=== PATIENT | male | born 1985 | race Two or more races ===

== ENCOUNTER 2017-06-01 21:10 | Emergency (ER) | payer MEDICAID ==
[2017-06-01] MEDS ORDERED: Ondansetron 4 MG/2 ML SDV IVPUSH ONE (22:14)
[2017-06-01] MEDS ORDERED: HYDROmorphone 0.5 MG/0.5 ML Syringe IVPUSH ONE (22:14)
[2017-06-01] MEDS ORDERED: Sodium Chloride 0.9% 1,000 ML IV ONE (22:14)
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
[2017-06-01] MEDS: Sodium Chloride 0.9% 10 ML Syringe FLUSH PRN (22:31)
[2017-06-02] MEDS ORDERED: HYDROmorphone 1 MG/ML Syringe IVPUSH ONE (00:21)
[2017-06-02] MEDS: Sodium Chloride 0.9% 10 ML Syringe FLUSH PRN (00:28)
[2017-06-02] MEDS ORDERED: HYDROmorphone 2 MG Tab PO STA (01:52)
== END 2017-06-02 02:23 | disposition home or self-care (01) ==
LOC: JP.ED 21:10
DX: S32.435A Nondisplaced fracture of anterior column [iliopubic] of left acetabulum, initial encounter for closed fracture (principal); F17.210 Nicotine dependence, cigarettes, uncomplicated; V89.2XXA Person injured in unspecified motor-vehicle accident, traffic, initial encounter; Y92.410 Unspecified street and highway as the place of occurrence of the external cause
CPT/HCPCS: 36415; 70450; 71250; 72125; 73700; 74176; 80053; 85025; 96361; 96374; 96375; 99284; A9270; J1170; J2405; J7040; J7050

== ENCOUNTER 2017-09-01 11:48 | Emergency (ER) | payer MEDICAID ==
--- NOTE | 2017-09-01 13:25 | EDM.PDOC ---
ED HPI GENERAL MEDICAL PROBLEM - General Chief Complaint: General Stated Complaint: RT HIP PAIN Time Seen by Provider: 09/01/17 13:10 Source of Information: Reports: Patient, Old Records, RN History Limitations: Reports: No Limitations - History of Present Illness INITIAL COMMENTS - FREE TEXT/NARRATIVE: 32 yo male presents with several days of R hip pain. He denies any injury or self tx. No hx of the same. Has not been to the clinic for this. Onset: Gradual Duration: Week(s):, Waxing/Waning Location: Reports: Lower Extremity, Right Quality: Reports: Sharp (with movement. No pain at rest.) Severity: Moderate Improves with: Reports: Rest Worsens with: Reports: Movement Context: Reports: Other (Unknown) Associated Symptoms: Reports: No Other Symptoms Treatments [employer]: Reports: Other (see below) (none) - Related Data Allergies Allergy/AdvReac Type Severity Reaction Status Date / Time ragweed pollen Allergy Cannot Verified 09/01/17 12:32 Remember red dye Allergy Hyperactivi Verified 09/01/17 12:32 ty yellow dye Allergy Hyperactivi Verified 09/01/17 12:32 ty *preservatives Allergy Hyperactivi Uncoded 09/01/17 12:32 ty Home Meds: Home Meds Etodolac 400 mg PO TID #20 tab 09/01/17 [Rx] Past Medical History HEENT History: Reports: Impaired Vision Gastrointestinal History: Reports: GERD Musculoskeletal History: Reports: Fracture Neurological History: Reports: Concussion Psychiatric History: Reports: ADHD, Suicide Attempt - Infectious Disease History Infectious Disease History: Reports: Chicken Pox Social & Family History - Tobacco Use Smoking Status *Q: Current Every Day Smoker Years of Tobacco use: 20 Packs/Tins Daily: 1 - Caffeine Use Caffeine Use: Reports: Soda - Alcohol Use Days Per Week of Alcohol Use: 2 Number of Drinks Per Day: 4 Total Drinks Per Week: 8 - Recreational Drug Use Recreational Drug Use: Yes Drug Use in Last 12 Months: Yes Recreational Drug Type: Reports: Marijuana/Hashish Recreational Drug Use Frequency: Monthly ED ROS GENERAL - Review of Systems Review Of Systems: See Below Constitutional: Reports: No Symptoms Musculoskeletal: Reports: Leg Pain (R groin) Skin: Reports: No Symptoms Neurological: Reports: No Symptoms ED EXAM, GENERAL - Physical Exam Exam: See Below Exam Limited By: No Limitations General Appearance: Alert, WD/WN, No Apparent Distress GI/Abdominal: Other (No inguinal hernia noted.) Back Exam: Normal Inspection Extremities: Normal Inspection, Normal Range of Motion, Other (Tender over R hip flexor). No: Pedal Edema, Joint Swelling, Limited Range of Motion, Increased Warmth, Redness Neurological: Alert, Oriented, CN II-XII Intact, Normal Cognition, No Motor/ Sensory Deficits Psychiatric: Normal Affect, Normal Mood Skin Exam: Warm, Dry, Intact, Normal Color, No Rash Lymphatic: No Adenopathy Course - Vital Signs Last Recorded V/S: Last Vital Signs Temp 36.6 C 09/01/17 12:36 Pulse 84 09/01/17 12:36 Resp 20 09/01/17 12:36 BP 153/75 H 09/01/17 12:36 Pulse Ox 95 09/01/17 12:36 Departure - Departure Time of Disposition: 13:25 Disposition: Home, Self-Care 01 Condition: Good Clinical Impression: Hip flexor tendinitis Qualifiers: Laterality: right Qualified Code(s): M76.891 - Other specified enthesopathies of right lower limb, excluding foot - Discharge Information Prescriptions: Etodolac 400 mg PO TID #20 tab Referrals: Otis Salinas Sr, MD [Primary Care Provider] - Forms: ED Department Discharge
== END 2017-09-01 13:28 | disposition home or self-care (01) ==
LOC: JP.ED 11:48
DX: M76.891 Other specified enthesopathies of right lower limb, excluding foot (principal); K21.9 Gastro-esophageal reflux disease without esophagitis; F90.9 Attention-deficit hyperactivity disorder, unspecified type; F17.210 Nicotine dependence, cigarettes, uncomplicated; Z91.09 Other allergy status, other than to drugs and biological substances
CPT/HCPCS: 99283

== ENCOUNTER 2022-12-26 19:17 | Emergency (ER) | payer MEDICAID | END 2022-12-26 21:49 | disposition home or self-care (01) | LOC: JP.ED 19:17 | DX: M54.50 Low back pain, unspecified (principal); Z91.048 Other nonmedicinal substance allergy status | CPT/HCPCS: 99283 ==

== ENCOUNTER 2023-05-26 18:09 | Inpatient (IN) | payer SELFPAY ==
[2023-05-26] MEDS ORDERED: Morphine 4 MG/ML Syringe IVPUSH PRN (19:00)
[2023-05-26] MEDS ORDERED: Aspirin 81 MG Tab.Chew PO ONE (19:00)
[2023-05-26] MEDS ORDERED: Sodium Chloride 0.9% 10 ML Syringe FLUSH PRN (19:00)
[2023-05-26] MEDS ORDERED: Sodium Chloride 0.9% 1,000 ML IV SCH (19:00)
[2023-05-26 19:12] LABS: BASOPHILS ABSOLUTE AUTO 0.08 K/uL (0.00-0.10); BASOPHILS PERCENT AUTO 0.7 % (0.1-1.3); EOSINOPHILS ABSOLUTE AUTO 0.15 K/uL (0.00-0.40); EOSINOPHILS PERCENT AUTO 1.3 % (0.0-5.4); HEMOGLOBIN 16.2 g/dL (12.9-16.9); IMMATURE GRAN ABSOLUTE AUTO 0.06 K/uL (0.00-0.23); IMMATURE GRAN PERCENT AUTO 0.5 % (0.0-0.7); LYMPHOCYTES ABSOLUTE AUTO 2.71 K/uL (0.8-3.3); LYMPHOCYTES PERCENT AUTO 24.2 % (11.4-47.7); MEAN CORPUSCULAR HGB CONC 34.5 g/dL (31.6-35.5); MEAN CORPUSCULAR VOLUME 92.7 fL (81.4-99.0); MONOCYTES ABSOLUTE AUTO 0.83 K/uL (0.20-0.90); MONOCYTES PERCENT AUTO 7.4 % (3.3-12.6); NEUTROPHILS ABSOLUTE AUTO 7.38 K/uL (1.0-7.6); NEUTROPHILS PERCENT AUTO 65.9 % (40.0-78.1); PLATELET COUNT,PLT 242 K/uL (130-375); RED BLOOD CELL COUNT 5.07 M/uL (4.14-5.76); WHITE BLOOD CELL COUNT,WBC 11.2 K/uL (3.2-11.0)
[2023-05-26 19:35] LABS: A/G RATIO 1.2 (1.2-2.2); ALANINE AMINOTRANSFERASE,ALT 36 U/L (12-78); ALBUMIN 3.7 g/dL (3.4-5.0); ALKALINE PHOSPHATASE 72 U/L (46-116); ANION GAP 8.4 mmol/L (5.0-14.0); ASPARTATE AMNIOTRANSFERASE,AST 22 U/L (15-37); BILIRUBIN TOTAL 0.4 mg/dL (0.2-1.0); BLOOD UREA NITROGEN,BUN 10 mg/dL (7-18); CALCIUM 8.4 mg/dL (8.5-10.1); CARBON DIOXIDE,CO2 29 mmol/L (21-32); CHLORIDE,CL 103 mmol/L (100-108); CREATININE 1.1 mg/dL (0.8-1.3); EST CRCL DRUG DOSING (CG) 92.17 mL/min; ESTIMATED GFR 87 mL/min (>60); GLUCOSE RANDOM 102 mg/dL (74-106); POTASSIUM,K 3.7 mmol/L (3.6-5.2); PROTEIN TOTAL,TP 6.8 g/dL (6.4-8.2); SODIUM,NA 140 mmol/L (140-148); TROPONIN I HIGH SENSITIVITY 6.8 pg/mL (<=60.3)
[2023-05-26] MEDS ORDERED: Sodium Chloride 0.9% 50 ML IV ONE (19:41)
[2023-05-26] MEDS ORDERED: Sodium Chloride 0.9% 10 ML Syringe FLUSH ONE (19:41)
[2023-05-26] MEDS ORDERED: Iopamidol 612 MG/ML 100 ML Bottle IV SCH (19:45)
[2023-05-26] MEDS ORDERED: cefTRIAXone 1 GM in Sodium Chloride 0.9% 50 ML IV ONE (21:45)
[2023-05-27] MEDS ORDERED: Sennosides/Docusate Sodium 50-8.6 MG Tab PO PRN (00:35)
[2023-05-27] MEDS ORDERED: Ondansetron 4 MG/2 ML SDV IV PRN (00:35)
[2023-05-27] MEDS ORDERED: Ondansetron 4 MG Tab.DIS PO PRN (00:35)
[2023-05-27] MEDS ORDERED: Pantoprazole 40 MG Vial IV ONE (00:35)
[2023-05-27] MEDS ORDERED: Nicotine 21 MG/24 Hr Patch TRDERM SCH ×2 (00:35→21:00)
[2023-05-27] MEDS ORDERED: Magnesium Hydroxide 400 MG/5 ML Susp 30 ML Cup PO PRN (00:35)
[2023-05-27] MEDS ORDERED: HYDROmorphone 1 MG/ML Syringe IVPUSH PRN (00:35)
[2023-05-27] MEDS: HYDROmorphone 0.5 MG/0.5 ML Syringe IVPUSH PRN ×2 (01:06→07:21)
[2023-05-27] MEDS: Sodium Chloride 0.9% 1,000 ML IV SCH ×2 (01:18→09:26)
[2023-05-27 04:39] LABS: HEMATOCRIT 45.3 % (38.4-49.7); HEMOGLOBIN 15.5 g/dL (12.9-16.9); MEAN CORPUSCULAR HEMOGLOBIN 31.7 pg (31.6-35.5); MEAN CORPUSCULAR HGB CONC 34.2 g/dL (31.6-35.5); MEAN CORPUSCULAR VOLUME 92.6 fL (81.4-99.0); RED BLOOD CELL COUNT 4.89 M/uL (4.14-5.76); WHITE BLOOD CELL COUNT,WBC 8.9 K/uL (3.2-11.0)
[2023-05-27 04:53] LABS: A/G RATIO 1.2 (1.2-2.2); ALANINE AMINOTRANSFERASE,ALT 34 U/L (12-78); ALBUMIN 3.4 g/dL (3.4-5.0); ALKALINE PHOSPHATASE 56 U/L (46-116); ANION GAP 10.2 mmol/L (5.0-14.0); ASPARTATE AMNIOTRANSFERASE,AST 25 U/L (15-37); BILIRUBIN TOTAL 0.6 mg/dL (0.2-1.0); BLOOD UREA NITROGEN,BUN 9 mg/dL (7-18); CALCIUM 8.2 mg/dL (8.5-10.1); CARBON DIOXIDE,CO2 26 mmol/L (21-32); CHLORIDE,CL 104 mmol/L (100-108); ESTIMATED GFR 98 mL/min (>60); GLUCOSE RANDOM 95 mg/dL (74-106); MAGNESIUM 1.8 mg/dL (1.8-2.4); PHOSPHORUS 3.5 mg/dL (2.5-4.9); POTASSIUM,K 3.9 mmol/L (3.6-5.2); PROTEIN TOTAL,TP 6.3 g/dL (6.4-8.2); SODIUM,NA 140 mmol/L (140-148)
[2023-05-27] MEDS ORDERED: Indocyanine Green 25 MG SDV IV ONE (08:30)
[2023-05-27] MEDS ORDERED: Ondansetron 4 MG/2 ML SDV ONE (10:15)
[2023-05-27] MEDS ORDERED: Propofol 200 MG/20 ML SDV ONE (10:15)
[2023-05-27] MEDS ORDERED: Neostigmine Methylsulfate 1 MG/ML 5 ML Syringe ONE (10:15)
[2023-05-27] MEDS ORDERED: fentaNYL 250 MCG/5 ML SDV ONE (10:15)
[2023-05-27] MEDS ORDERED: Glycopyrrolate 0.2 MG/ML 5 ML MDV ONE (10:15)
[2023-05-27] MEDS ORDERED: Succinylcholine 200 MG/10 ML MDV ONE (10:15)
[2023-05-27] MEDS ORDERED: Dexamethasone 4 MG/ML SDV ONE (10:15)
[2023-05-27] MEDS ORDERED: Rocuronium 50 MG/5 ML Vial ONE ×2 (10:15→13:30)
[2023-05-27] MEDS ORDERED: Piperacillin/Tazobactam/Dext 3.375 GM in Premix Bag 1 BAG IV ONE (11:00)
[2023-05-27] MEDS ORDERED: Bupivacaine 0.5%/EPINEPHrine 1:200,000 50 ML MDV ONE (11:16)
[2023-05-27] MEDS ORDERED: Lactated Ringers 1,000 ML ONE (14:29)
[2023-05-27] MEDS ORDERED: fentaNYL 100 MCG/2 ML SDV ONE (14:30)
[2023-05-27] MEDS ORDERED: Acetaminophen 325 MG Tab PO SCH (14:30)
[2023-05-27] MEDS: oxyCODONE 5 MG Tab PO PRN ×2 (17:00→21:02)
[2023-05-27] MEDS: Acetaminophen 500 MG Tab PO SCH ×2 (17:00→21:01)
[2023-05-28] MEDS: Acetaminophen 500 MG Tab PO SCH ×2 (04:39→09:56)
[2023-05-28 06:11] LABS: BASOPHILS ABSOLUTE AUTO 0.03 K/uL (0.00-0.10); BASOPHILS PERCENT AUTO 0.2 % (0.1-1.3); EOSINOPHILS PERCENT AUTO 0.1 % (0.0-5.4); HEMATOCRIT 44.9 % (38.4-49.7); HEMOGLOBIN 15.6 g/dL (12.9-16.9); IMMATURE GRAN ABSOLUTE AUTO 0.08 K/uL (0.00-0.23); IMMATURE GRAN PERCENT AUTO 0.5 % (0.0-0.7); LYMPHOCYTES ABSOLUTE AUTO 1.81 K/uL (0.8-3.3); LYMPHOCYTES PERCENT AUTO 10.9 % (11.4-47.7); MEAN CORPUSCULAR HGB CONC 34.7 g/dL (31.6-35.5); MONOCYTES ABSOLUTE AUTO 0.97 K/uL (0.20-0.90); MONOCYTES PERCENT AUTO 5.8 % (3.3-12.6); NEUTROPHILS ABSOLUTE AUTO 13.72 K/uL (1.0-7.6); NEUTROPHILS PERCENT AUTO 82.5 % (40.0-78.1); PLATELET COUNT,PLT 228 K/uL (130-375); RED BLOOD CELL COUNT 4.88 M/uL (4.14-5.76); WHITE BLOOD CELL COUNT,WBC 16.6 K/uL (3.2-11.0)
[2023-05-28 06:12] LABS: EOSINOPHILS ABSOLUTE AUTO 0.01 K/uL (0.00-0.40)
[2023-05-28 06:38] LABS: A/G RATIO 1.1 (1.2-2.2); ALANINE AMINOTRANSFERASE,ALT 40 U/L (12-78); ALBUMIN 3.3 g/dL (3.4-5.0); ALKALINE PHOSPHATASE 58 U/L (46-116); ASPARTATE AMNIOTRANSFERASE,AST 32 U/L (15-37); BILIRUBIN TOTAL 0.5 mg/dL (0.2-1.0); BLOOD UREA NITROGEN,BUN 8 mg/dL (7-18); CALCIUM 8.2 mg/dL (8.5-10.1); CARBON DIOXIDE,CO2 26 mmol/L (21-32); CHLORIDE,CL 103 mmol/L (100-108); EST CRCL DRUG DOSING (CG) 101.39 mL/min; ESTIMATED GFR 98 mL/min (>60); GLUCOSE RANDOM 118 mg/dL (74-106); MAGNESIUM 1.7 mg/dL (1.8-2.4); PHOSPHORUS 3.7 mg/dL (2.5-4.9); PROTEIN TOTAL,TP 6.3 g/dL (6.4-8.2); SODIUM,NA 137 mmol/L (140-148)
[2023-05-28] MEDS ORDERED: Magnesium Sulfate/Water 2 GM in Premix Bag 1 BAG IV ONE (06:44)
[2023-05-28] MEDS: oxyCODONE 5 MG Tab PO PRN (07:08)
== END 2023-05-28 11:50 | disposition home or self-care (01) | DRG 419 ==
LOC: JP.ED 18:09 → JP.MS 05-27 00:10
PROVIDERS: ADMIT Registered Nurse; ATTEND Student in an Organized Health Care Education/Training Program
PROC: 8E0W4CZ Robotic Assisted Procedure of Trunk Region, Percutaneous Endoscopic Approach (ICD-10-PCS; 2023-05-27)
PROC: 0FT44ZZ Resection of Gallbladder, Percutaneous Endoscopic Approach (ICD-10-PCS; principal; 2023-05-27 11:15)
DX: K81.0 Acute cholecystitis (principal); E83.42 Hypomagnesemia; K21.9 Gastro-esophageal reflux disease without esophagitis; F90.9 Attention-deficit hyperactivity disorder, unspecified type; F17.210 Nicotine dependence, cigarettes, uncomplicated; Z88.8 Allergy status to other drugs, medicaments and biological substances; Z11.52 Encounter for screening for COVID-19
CPT/HCPCS: 36415; 71045; 71045-26; 74177; 76705; 80053; 83605; 83690; 83735; 84100; 84484; 85025; 85027; 88304; 93005; 96374; 99222; 99285-25; A9270-GY; C9113; J0330; J0696; J1100; J1170; J2405; J2543; J2704; J2710; J3010; J3475; J3490; J7030; J7120; Q9967; U0002

== ENCOUNTER 2024-12-03 16:35 | Emergency (ER) | payer SELFPAY ==
[2024-12-03] MEDS: Cyclobenzaprine 10 MG Tab PO ONE (18:50)
[2024-12-03] MEDS: Morphine 4 MG/ML Syringe IM ONE (18:51)
[2024-12-03] MEDS: Ondansetron 4 MG Tab.DIS PO ONE (18:51)
== END 2024-12-03 19:00 | disposition home or self-care (01) ==
LOC: JP.ED 16:35
DX: M54.50 Low back pain, unspecified (principal); F17.200 Nicotine dependence, unspecified, uncomplicated; Z91.041 Radiographic dye allergy status; Z88.8 Allergy status to other drugs, medicaments and biological substances
CPT/HCPCS: 99283; A9270

== ENCOUNTER 2025-01-20 10:59 | Emergency (ER) | payer SELFPAY ==
[2025-01-20 11:47] LABS: BASOPHILS ABSOLUTE AUTO 0.06 K/uL (0.00-0.10); BASOPHILS PERCENT AUTO 0.6 % (0.1-1.3); EOSINOPHILS ABSOLUTE AUTO 0.09 K/uL (0.00-0.40); EOSINOPHILS PERCENT AUTO 0.9 % (0.0-5.4); HEMATOCRIT 48.5 % (38.4-49.7); HEMOGLOBIN 16.9 g/dL (12.9-16.9); IMMATURE GRAN ABSOLUTE AUTO 0.04 K/uL (0.00-0.23); IMMATURE GRAN PERCENT AUTO 0.4 % (0.0-0.7); LYMPHOCYTES ABSOLUTE AUTO 2.44 K/uL (0.8-3.3); LYMPHOCYTES PERCENT AUTO 23.9 % (11.4-47.7); MEAN CORPUSCULAR HEMOGLOBIN 33.3 pg (31.6-35.5); MEAN CORPUSCULAR HGB CONC 34.8 g/dL (31.6-35.5); MEAN CORPUSCULAR VOLUME 95.5 fL (81.4-99.0); MONOCYTES ABSOLUTE AUTO 0.65 K/uL (0.20-0.90); MONOCYTES PERCENT AUTO 6.4 % (3.3-12.6); NEUTROPHILS ABSOLUTE AUTO 6.91 K/uL (1.0-7.6); NEUTROPHILS PERCENT AUTO 67.8 % (40.0-78.1); PLATELET COUNT,PLT 215 K/uL (130-375); RED BLOOD CELL COUNT 5.08 M/uL (4.14-5.76); WHITE BLOOD CELL COUNT,WBC 10.2 K/uL (3.2-11.0)
[2025-01-20 12:13] LABS: ANION GAP 13.3 mmol/L (5.0-14.0); CALCIUM 8.8 mg/dL (8.5-10.1); EST CRCL DRUG DOSING (CG) 99.36 mL/min; POTASSIUM,K 3.3 mmol/L (3.6-5.2)
== END 2025-01-20 13:38 | disposition home or self-care (01) ==
LOC: JP.ED 10:59
DX: S29.012A Strain of muscle and tendon of back wall of thorax, initial encounter (principal); Z90.49 Acquired absence of other specified parts of digestive tract; Z91.048 Other nonmedicinal substance allergy status; F17.210 Nicotine dependence, cigarettes, uncomplicated; X50.9XXA Other and unspecified overexertion or strenuous movements or postures, initial encounter
CPT/HCPCS: 36415; 71046; 71046-26; 80048; 84484; 85025; 85379; 93005; 93010; 99283; 99285

== ENCOUNTER 2025-04-17 23:54 | Emergency (ER) | payer SELFPAY ==
[2025-04-18] MEDS ORDERED: Sodium Chloride 0.9% 10 ML Syringe FLUSH PRN (01:19)
[2025-04-18 01:33] LABS: BASOPHILS ABSOLUTE AUTO 0.08 K/uL (0.00-0.10); BASOPHILS PERCENT AUTO 0.7 % (0.1-1.3); EOSINOPHILS ABSOLUTE AUTO 0.08 K/uL (0.00-0.40); EOSINOPHILS PERCENT AUTO 0.7 % (0.0-5.4); IMMATURE GRAN ABSOLUTE AUTO 0.06 K/uL (0.00-0.23); IMMATURE GRAN PERCENT AUTO 0.5 % (0.0-0.7); LYMPHOCYTES ABSOLUTE AUTO 2.97 K/uL (0.8-3.3); LYMPHOCYTES PERCENT AUTO 27.2 % (11.4-47.7); MONOCYTES ABSOLUTE AUTO 0.87 K/uL (0.20-0.90); MONOCYTES PERCENT AUTO 8.0 % (3.3-12.6); NEUTROPHILS ABSOLUTE AUTO 6.86 K/uL (1.0-7.6); NEUTROPHILS PERCENT AUTO 62.9 % (40.0-78.1); PLATELET COUNT,PLT 259 K/uL (130-375); RED BLOOD CELL COUNT 5.10 M/uL (4.14-5.76); WHITE BLOOD CELL COUNT,WBC 10.9 K/uL (3.2-11.0)
[2025-04-18 01:49] LABS: A/G RATIO 1.0 (1.2-2.2); ALANINE AMINOTRANSFERASE,ALT 83 U/L (12-78); ASPARTATE AMNIOTRANSFERASE,AST 64 U/L (15-37); BILIRUBIN TOTAL 0.5 mg/dL (0.2-1.0); BLOOD UREA NITROGEN,BUN 10 mg/dL (7-18); CARBON DIOXIDE,CO2 32 mmol/L (21-32); CHLORIDE,CL 100 mmol/L (100-108); CREATININE 1.1 mg/dL (0.8-1.3); ESTIMATED GFR 86 mL/min (>60); GLUCOSE RANDOM 108 mg/dL (74-106); PROTEIN TOTAL,TP 7.4 g/dL (6.4-8.2); SODIUM,NA 141 mmol/L (140-148)
[2025-04-18 01:50] LABS: POTASSIUM,K 2.8 mmol/L (3.6-5.2)
[2025-04-18] MEDS: Potassium Chloride 20 MEQ Tab.ER PO ONE (02:31)
[2025-04-18] MEDS: Iopamidol 612 MG/ML 100 ML Bottle IV SCH (02:45)
[2025-04-18] MEDS: Sodium Chloride 0.9% 10 ML Syringe FLUSH ONE (02:45)
== END 2025-04-18 03:28 | disposition home or self-care (01) ==
LOC: JP.ED 23:54
DX: K92.2 Gastrointestinal hemorrhage, unspecified (principal); E87.6 Hypokalemia; Z88.8 Allergy status to other drugs, medicaments and biological substances; Z79.899 Other long term (current) drug therapy; Z90.49 Acquired absence of other specified parts of digestive tract
CPT/HCPCS: 36415; 74177; 80053; 83735; 85025; 86140; 99284; A9270; Q9967

== ENCOUNTER 2025-04-30 06:49 | Day surgery (SDC) | payer SELFPAY ==
[2025-04-30] MEDS ORDERED: Propofol 200 MG/20 ML SDV ONE (07:04)
[2025-04-30] MEDS ORDERED: Midazolam 1 MG/ML 2 ML SDV ONE (07:04)
[2025-04-30] MEDS ORDERED: fentaNYL 50 MCG/ML SDV ONE (07:04)
[2025-04-30] MEDS: Lactated Ringers 1,000 ML IV SCH (07:31)
== END 2025-04-30 10:20 | disposition home or self-care (01) ==
LOC: JP.SDS 06:49
PROVIDERS: ATTEND Family Medicine
DX: D12.5 Benign neoplasm of sigmoid colon (principal); D12.8 Benign neoplasm of rectum; K63.5 Polyp of colon; K92.1 Melena; F17.210 Nicotine dependence, cigarettes, uncomplicated; Z80.0 Family history of malignant neoplasm of digestive organs; Z91.09 Other allergy status, other than to drugs and biological substances; Z79.899 Other long term (current) drug therapy
CPT/HCPCS: 00811; 45380; 45385; J2250; J2704; J3010; J7120